=== PATIENT | female | born 1935 | race Two or more races ===

== ENCOUNTER → 2017-06-03 | Day surgery (SDC) | payer OTHER, MEDICARE ==
[~2017-06-03] MED LIST: ACETAMINOPHEN 1000 MG/100 ML IV ONE; BUPIVACAINE HCL 0.5% 10ML MPF VIAL INJ ONE; CALCIUM PO; CEFAZOLIN SOD 2 GM/D5W 50ML 50 ML IV ONE; CELEBREX PO; DEXAMETHASONE SOD PHOS INJ 4 MG/ML VIAL ONE; FENTANYL CITRATE/PF 100MCG/2 ML INJ ONE; LIDOCAINE HCL 2% LOCAL INJ 5 ML SDV VIAL INJ ONE; NEOSTIGMINE 1 MG/ML 10ML VIAL ONE; ONDANSETRON HCL INJ 2 MG/ML VIAL ONE; PROPOFOL IV EMULSION 10 MG/ML 20 ML VIAL ONE; SEVOFLURANE INHAL SOLN 250 ML PEN BTL ONE; VITAMIN D PO
--- NOTE | 2017-06-03 08:41 | Diagnostic Imaging Report ---
PROCEDURE:CHEST 2 VIEWS TECHNIQUE:PA and lateral chest INDICATION:Preoperative chest x-ray for right foot surgery COMPARISON:None. FINDINGS: Right hemidiaphragm elevation. The lungs are otherwise clear. No pleural effusions. Normal heart size, mediastinal contour, and pulmonary vasculature. Intact skeleton. 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 CONCLUSION: Right hemidiaphragm elevation without acute abnormality. Dictated by: Sterling Smith M.D. on 06/03/2017 at 8:49 Electronically approved by: Sterling Smith M.D. on 06/03/2017 at 8:49
--- NOTE | 2017-06-03 17:47 | Operative Report ---
DATE OF PROCEDURE: June 03, 2017 PREOPERATIVE DIAGNOSES 1. Hallux abductovalgus deformity of the right foot. 2. 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 POSTOPERATIVE DIAGNOSES 1. Hallux abductovalgus deformity of the right foot. 2. 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 TITLE OF OPERATIONS 1. Modified Donald bunionectomy of the right foot with decompression. She also has degenerative joint disease, and that was treated with subchondral drilling. 2. The patient also has rigidly contracted 2nd digit right foot, treated with arthrodesis utilizing a K-wire and implantable digital fusion device from [employer]. The areas of surgery were evaluated and noted to be clear of any infection prior to performing the following procedures: Modified Donald bunionectomy, subchondral drilling, arthroplasty 2nd digit right foot. PROCEDURE IN DETAIL: The patient was placed upon the operating table prior to evaluation and elevation of the pneumatic thigh tourniquet and preparation in the usual aseptic manner. Modified Donald bunionectomy of the right foot. A linear longitudinal incision was made overlying the dorsal medial aspect of the 1st metatarsophalangeal joint of the right foot. The incision was deepened via sharp and blunt dissection down to the level of the dorsal capsular structure. Care was taken to identify and retract all vital structures encountered. The head of the 1st metatarsal was delivered into the surgical site and remodeled utilizing an oscillating saw. The head was then treated for severe degenerative joint disease with subchondral drilling. The base of the proximal phalanx was adequately covered in cartilage. The area was then irrigated. The conjoined tendon of the adductor hallucis muscle was identified and tenotomized, which allowed for a subluxation of the sesamoids back underneath the 1st met head when pressurized. The attention was directed back to the medial aspect of the 1st metatarsal where a [id number] V osteotomy was placed with the apex distally and base proximally to allow for relative shift lateralward of the head of the more proximal segment, which was then impacted and stabilized with 2 cortical bone screws, 3.0 and 2.4 from [employer]. The area was then further remodeled with the oscillating saw, rotary bur. Capsule tendon balancing procedure was performed, and deep closure was 3-0 Vicryl, 4-0 Vicryl and 4-0 nylon. Attention was then directed to the 2nd digit for arthrodesis 2nd digit of the right foot. A linear longitudinal incision was made across the dorsal aspect of the 2nd digit of the right foot. The incision was deepened via sharp and blunt dissection down to the level of the dorsal capsular structure. Care was taken to identify and retract all vital structures encountered. The head of the proximal phalanx was delivered into the surgical site, and a number 8 basket was used for [id number] reaming. A distal aspect of the bone was transected sharply with an oscillating saw first to shorten. Then the head of the proximal phalanx was appropriately reshaped, and the canal was made for a digital implant. The distal aspect was similarly treated with the cone-shaped reamer, and an 8-mm digital implant was selected. This was applied and screwed in proximally with the K-wire distally and reinserting the K-wire retrograded distally into the barrel of the implant. The implant was press-fitted and tacked to the appropriate device. The K-wire was then further advanced into the 2nd digit with excellent alignment noted. Extensor tendon lengthening was performed as the capsule was also treated with capsulotomy on the dorsal aspect. The tendon was repaired with a 3-0 Vicryl. The appropriate pinning and positioning were chosen via fluoroscopy. After irrigation, tendon repair and closure of all skin with 3-0 Vicryl, 4-0 Vicryl and 4-0 nylon, the areas were blocked with 0.5 Marcaine and Decadron [place]. Human tissue allograft was used into the areas of the repair as well as the incision sites. The appropriate blocks having been performed, release of the pneumatic thigh tourniquet showed a normal hyperemic flush to all digits of the right foot, and a posterior splint was applied. The patient left the operating room with vital signs stable, in apparent satisfactory condition, having tolerated both anesthetic and procedure very well. Job#: [id number]
== END | disposition home or self-care (01) ==
LOC: OR 07:46
PROVIDERS: ATTEND Podiatrist Foot Surgery
DX: M20.11 Hallux valgus (acquired), right foot (principal); M20.41 Other hammer toe(s) (acquired), right foot; M19.071 Primary osteoarthritis, right ankle and foot; I89.0 Lymphedema, not elsewhere classified
CPT/HCPCS: 28285; 28296; 28313; 71020; 93005; C1713; J1100; J2001; J2405; J2710; 76001

== ENCOUNTER → 2020-06-30 | Outpatient (CLI) | payer OTHER ==
[~2020-06-30] MED LIST changes: -ACETAMINOPHEN 1000 MG/100 ML IV ONE; -BUPIVACAINE HCL 0.5% 10ML MPF VIAL INJ ONE; -CEFAZOLIN SOD 2 GM/D5W 50ML 50 ML IV ONE; +COVID-19 VACC, MRNA(MODERNA)/PF 100 MCG/0.5 ML VIAL IM ONE; -DEXAMETHASONE SOD PHOS INJ 4 MG/ML VIAL ONE; -FENTANYL CITRATE/PF 100MCG/2 ML INJ ONE; -LIDOCAINE HCL 2% LOCAL INJ 5 ML SDV VIAL INJ ONE; +NAPROXEN250 MG PO; -NEOSTIGMINE 1 MG/ML 10ML VIAL ONE; -ONDANSETRON HCL INJ 2 MG/ML VIAL ONE; +PEPCID20 MG PO; -PROPOFOL IV EMULSION 10 MG/ML 20 ML VIAL ONE; -SEVOFLURANE INHAL SOLN 250 ML PEN BTL ONE; +ULTRAM50 MG PO
== END ==
LOC: VACCPMC 17:00
DX: Z23 Encounter for immunization (principal); Z20.822 Contact with and (suspected) exposure to COVID-19

== ENCOUNTER → 2020-07-31 | Outpatient (CLI) | payer OTHER | END | DRG 951 | LOC: VACCPMC 08:08 | DX: Z23 Encounter for immunization (principal); Z20.822 Contact with and (suspected) exposure to COVID-19 | CPT/HCPCS: 0012A; 91301 ==

== ENCOUNTER → 2020-09-09 | Outpatient (CLI) | payer MEDICARE ==
[~2020-09-09] MED LIST changes: -COVID-19 VACC, MRNA(MODERNA)/PF 100 MCG/0.5 ML VIAL IM ONE
== END ==
LOC: US 09:50
PROVIDERS: ATTEND Internal Medicine Gastroenterology
DX: R94.6 Abnormal results of thyroid function studies (principal)
CPT/HCPCS: 76536

== ENCOUNTER 2022-07-04 09:00 | Inpatient (IN) | payer MEDICARE, OTHER ==
[~2022-07-04] VITALS: Ht 193 cm; Wt 66.2 kg
[2022-07-04 09:26] LABS: BASOPHILS % 0.3 % (0.0-1.0); HEMATOCRIT 43.2 % (34.2-44.1); HEMOGLOBIN 13.7 g/dL (12.0-16.0); LYMPHOCYTES # (AUTO) 0.6 (1.0-3.2); MEAN CORPUSCULAR HEMOGLOBIN 30.4 pg (28-32); MEAN CORPUSCULAR HGB CONC 31.7 g/dL (31-35); MEAN CORPUSCULAR VOLUME 95.8 fL (81-99); MONOCYTES # (AUTO) 0.4 (0.2-0.8); MONOCYTES % 3.1 % (4.4-11.3); NEUTROPHILS # (AUTO) 10.4 (2.1-6.9); NEUTROPHILS % 91.2 % (38.7-80.0); PLATELET COUNT 225 x10e3/uL (140-360); RED BLOOD COUNT 4.51 x10e6/uL (3.6-5.1); RED CELL DISTRIBUTION WIDTH 14.2 % (11.7-14.4)
[2022-07-04 09:43] LABS: ALBUMIN 3.9 g/dL (3.5-5.0); ALBUMIN/GLOBULIN RATIO 1.5 (0.8-2.0); ANION GAP 16.7 mmol/L (8-16); CREATININE, SERUM 0.72 mg/dL (0.57-1.11); POTASSIUM 4.7 mmol/L (3.5-5.1)
[2022-07-04] MEDS ORDERED: ONDANSETRON HCL INJ 2MG/ML 2ML 2 MG/ML VIAL IV PRN ×2 (09:45→15:30)
[2022-07-04] MEDS ORDERED: SODIUM CHLORIDE 0.9% 1000ML 1,000 ML IV SCH (09:45)
[2022-07-04] MEDS ORDERED: Morphine 4mg INJECTION 4 MG/ML INJ IV PRN (09:45)
[2022-07-04 11:25] VITALS: BP 137/73
[2022-07-04 12:18] VITALS: BP 137/73
[2022-07-04] MEDS ORDERED: ACETAMINOPHEN 325 MG TAB PO PRN ×2 (14:15→15:30)
[2022-07-04] MEDS ORDERED: TRAMADOL HCL 50 MG TAB PO PRN (15:15)
[2022-07-04] MEDS ORDERED: HYOSCYAMINE SULFATE 0.5 MG/ML INJ IV PRN (15:15)
[2022-07-04] MEDS ORDERED: DOCUSATE SODIUM 100 MG CAP PO PRN (15:30)
[2022-07-04] MEDS ORDERED: LIDOCAINE 4% PATCH TP PRN (15:30)
[2022-07-04] MEDS ORDERED: SIMETHICONE 80 MG CHEW PO PRN (15:30)
[2022-07-04] MEDS ORDERED: HYDRALAZINE HCL 20 MG/ML VIAL IV PRN (15:30)
[2022-07-04] MEDS ORDERED: POTASSIUM CHLORIDE 20 MEQ TAB CR PO PRN (15:30)
[2022-07-04] MEDS ORDERED: DIPHENHYDRAMINE HCL 25 MG CAP PO PRN (15:30)
[2022-07-04] MEDS ORDERED: ALBUTEROL/IPRATROPIUM 3 ML NEB NEB PRN (15:30)
[2022-07-04] MEDS ORDERED: DEXTROSE 50% SYRINGE 50 ML IV PRN (15:30)
[2022-07-04] MEDS ORDERED: BENZONATATE 100 MG CAP PO PRN (15:30)
[2022-07-04 16:30] VITALS: BP 140/59
[2022-07-04] MEDS: ENOXAPARIN SOD INJ 40 MG/0.4 ML SYR SC SCH (17:07)
[2022-07-04] MEDS: DEXTROSE 5%/0.9% SOD CHL 1,000 ML IV SCH (17:07)
[2022-07-04] MEDS ORDERED: DICYCLOMINE HCL 20 MG TAB PO SCH (18:00)
[2022-07-04 20:00] VITALS: BP 134/62
[2022-07-04] MEDS ORDERED: MELATONIN 5 MG TABLET PO PRN (21:00)
[2022-07-04] MEDS ORDERED: METOPROLOL SUCC25 MG PO (21:06)
[2022-07-04 21:31] VITALS: BP 134/62
[2022-07-04 23:06] VITALS: BP 134/62
[2022-07-05] VITALS (8 sets, daily range): BP systolic 123–163; BP diastolic 56–86
[2022-07-05] MEDS: DEXTROSE 5%/0.9% SOD CHL 1,000 ML IV SCH ×2 (04:46→16:26)
[2022-07-05 05:31] LABS: BASOPHILS % 0.3 % (0.0-1.0); EOSINOPHILS # (AUTO) 0.1 (0.0-0.4); EOSINOPHILS % 2.2 % (0.0-6.0); HEMOGLOBIN 11.7 g/dL (12.0-16.0); LYMPHOCYTES # (AUTO) 1.4 (1.0-3.2); LYMPHOCYTES % 23.5 % (18.0-39.1); MEAN CORPUSCULAR HGB CONC 32.5 g/dL (31-35); MEAN CORPUSCULAR VOLUME 92.3 fL (81-99); MONOCYTES # (AUTO) 0.7 (0.2-0.8); MONOCYTES % 11.4 % (4.4-11.3); NEUTROPHILS # (AUTO) 3.7 (2.1-6.9); NEUTROPHILS % 62.3 % (38.7-80.0); PLATELET COUNT 172 x10e3/uL (140-360); RED CELL DISTRIBUTION WIDTH 14.8 % (11.7-14.4)
[2022-07-05 05:50] LABS: ALBUMIN 2.9 g/dL (3.5-5.0); ALBUMIN/GLOBULIN RATIO 1.1 (0.8-2.0); ANION GAP 13.8 mmol/L (8-16); CALCIUM 7.9 mg/dL (8.4-10.2); CREATININE, SERUM 0.68 mg/dL (0.57-1.11); POTASSIUM 3.8 mmol/L (3.5-5.1)
[2022-07-05] MEDS: ENOXAPARIN SOD INJ 40 MG/0.4 ML SYR SC SCH (16:30)
[2022-07-05 17:05] LABS: ALBUMIN 3.6 g/dL (3.5-5.0); BILIRUBIN,DIRECT 0.3 mg/dL (0.0-0.5); MAGNESIUM 1.8 MG/DL (1.3-2.1)
[2022-07-05 17:27] LABS: THYROID STIMULATING HORMONE 0.655 uIU/mL (0.350-4.940)
[2022-07-05] MEDS: METOPROLOL SUCCINATE 25 MG TAB XL PO SCH (20:36)
[2022-07-05 23:46] LABS: % IRON SATURATION 14 % (15-50); IRON 45 ug/dL (50-170); TOTAL IRON BINDING CAPACITY 312 ug/dL (261-478); TRANSFERRIN 223 mg/dL (180-382)
[2022-07-06] VITALS (7 sets, daily range): BP systolic 122–160; BP diastolic 50–84
[2022-07-06] MEDS: DEXTROSE 5%/0.9% SOD CHL 1,000 ML IV SCH ×2 (04:03→15:11)
[2022-07-06] MEDS ORDERED: DIATRIZOATE MEGL/DIATRIZOA SOD 30 ML BTL PO ONE (09:07)
[2022-07-06] MEDS: SENNA-S TABLET PO SCH ×2 (09:12→17:06)
[2022-07-06] MEDS ORDERED: IOPAMIDOL 370 MG/ML 100 ML INFUS..BTL INJ ONE ×2 (09:20→14:47)
[2022-07-06] MEDS: ENOXAPARIN SOD INJ 40 MG/0.4 ML SYR SC SCH (17:06)
[2022-07-06] MEDS: METOPROLOL SUCCINATE 25 MG TAB XL PO SCH (22:27)
[2022-07-07 00:29] VITALS: BP 139/66
[2022-07-07] MEDS: DEXTROSE 5%/0.9% SOD CHL 1,000 ML IV SCH (03:50)
[2022-07-07 04:54] LABS: BASOPHILS % 0.6 % (0.0-1.0); EOSINOPHILS # (AUTO) 0.2 (0.0-0.4); EOSINOPHILS % 2.8 % (0.0-6.0); HEMATOCRIT 36.1 % (34.2-44.1); HEMOGLOBIN 11.3 g/dL (12.0-16.0); LYMPHOCYTES # (AUTO) 1.6 (1.0-3.2); LYMPHOCYTES % 29.5 % (18.0-39.1); MEAN CORPUSCULAR HEMOGLOBIN 30.1 pg (28-32); MEAN CORPUSCULAR HGB CONC 31.3 g/dL (31-35); MONOCYTES # (AUTO) 0.6 (0.2-0.8); MONOCYTES % 10.8 % (4.4-11.3); NEUTROPHILS % 55.9 % (38.7-80.0); PLATELET COUNT 182 x10e3/uL (140-360); RED BLOOD COUNT 3.76 x10e6/uL (3.6-5.1)
[2022-07-07 05:17] LABS: CALCIUM 8.2 mg/dL (8.4-10.2); CREATININE, SERUM 0.6 mg/dL (0.57-1.11)
[2022-07-07 05:19] VITALS: BP 146/73
[2022-07-07] MEDS ORDERED: ONDANSETRON HCL 4 MG ORAL DISINTEGRATING TAB SL PRN (08:00)
[2022-07-07 08:10] VITALS: BP 161/69
[2022-07-07 08:23] VITALS: BP 161/69
[2022-07-07] MEDS ORDERED: GADOBENATE DIMEGLUMINE 1 ML IV ONE (08:42)
[2022-07-07] MEDS: SENNA-S TABLET PO SCH (09:52)
[2022-07-07] MEDS: POTASSIUM CHLORIDE 10MEQ EA PO SCH ×2 (09:53→14:32)
[2022-07-07 11:41] VITALS: BP 167/61
[2022-07-07 15:25] VITALS: BP 155/56
[2022-07-07] MEDS ORDERED: POTASSIUM CHLORIDE 20 MEQ TAB CR PO ONE (15:45)
== END 2022-07-07 16:50 | disposition home or self-care (01) | DRG 392 ==
LOC: ER 09:14 → ERHOLD 09:39 → MED/SURG 11:15
PROVIDERS: ADMIT Internal Medicine; ATTEND Internal Medicine
DX: K52.9 Noninfective gastroenteritis and colitis, unspecified (principal); K56.7 Ileus, unspecified; K86.2 Cyst of pancreas; D72.829 Elevated white blood cell count, unspecified; E86.0 Dehydration; E87.6 Hypokalemia; K80.50 Calculus of bile duct without cholangitis or cholecystitis without obstruction; K43.9 Ventral hernia without obstruction or gangrene; I10 Essential (primary) hypertension; Z85.3 Personal history of malignant neoplasm of breast; Z90.49 Acquired absence of other specified parts of digestive tract; Z79.899 Other long term (current) drug therapy; Z83.3 Family history of diabetes mellitus; Z82.49 Family history of ischemic heart disease and other diseases of the circulatory system; Z87.19 Personal history of other diseases of the digestive system; Z90.710 Acquired absence of both cervix and uterus; Z90.11 Acquired absence of right breast and nipple
CPT/HCPCS: 36415; 74018; 74022; 74177; 74183; 80048; 80053; 80076; 82150; 82378; 82607; 82746; 83540; 83690; 83735; 84443; 84466; 85025; 85045; 85651; 86140; 86301; 86304; 93005; 94799; 96360; 99252; 99284; J0696; J1650; J1980; J2270; J2405; J7030; J7042; Q9963; Q9967